=== PATIENT | female | born 1995 | race Caucasian/White ===

== ENCOUNTER 2021-09-01 11:40 | Emergency (ER) | payer SELFPAY ==
[2021-09-01] MEDS ORDERED: Ibuprofen 800 MG TAB ONE (13:08)
== END 2021-09-01 16:50 | disposition home or self-care (01) ==
LOC: ERS 11:40
DX: S52.125A Nondisplaced fracture of head of left radius, initial encounter for closed fracture (principal); S82.832A Other fracture of upper and lower end of left fibula, initial encounter for closed fracture; W19.XXXA Unspecified fall, initial encounter